=== PATIENT | female | born 1990 | race Caucasian/White ===

== ENCOUNTER 2019-05-27 08:53 | Inpatient (IN) | payer OTHER ==
[2019-05-27] MEDS ORDERED: Lactated Ringers 1000 ML Bag* 1,000 ML IV ONE (09:07)
[2019-05-27] MEDS ORDERED: Buffered Lidocaine 1% SYRIN* 1 ML/SYRINGE INTRADERM ONE (09:07)
[2019-05-27] MEDS ORDERED: Dinoprostone* 10 MG VAG.SUPP VAGINAL ONE (09:07)
[2019-05-27 10:00] LABS: Urine Appearance Cloudy; Urine Bilirubin Negative (Negative); Urine Blood 1+ (Negative); Urine Color Yellow; Urine Glucose Negative (Negative); Urine Ketones Negative (Negative); Urine Nitrite Negative (Negative); Urine Protein Negative (Negative); Urine Specific Gravity 1.004 (1.010-1.030); Urine Urobilinogen Negative (Negative)
[2019-05-27 10:05] LABS: Urine Bacteria 1+ (Absent); Urine Red Blood Cell 2+(6-10/hpf) (Absent); Urine Squamous Epithelial Cell Present (Absent); Urine White Blood Cell 1+(6-10/hpf) (Absent)
[2019-05-27 10:12] LABS: Urine Benzodiazepine Screen None Detected (None Detect); Urine Opiates Screen None Detected (None Detect)
--- NOTE | 2019-05-27 10:17 | HP ---
General Information - Reason for Visit Pt with dx proteinuria without hypertension. Recommendation for IOL at 39 weeks. Here for cervical ripening today. - General Information Maternal Age: 29 Grav: 1 Para: 0 SAB: 0 IEA: 0 Estimated Due Date: 06/03/19 Determined By: Early Ultrasound Gestational Age in Weeks/Days: 39 0/7 Maternal Blood Type and Rh: A Positive - Results this Serology/RPR Result: Non-Reactive Rubella Result: Immune HBsAg Result: Negative HIV Result: Negative GBS Culture Result: Negative Past Medical History Delivery History: See Records - Primigravida Pertinent Past Medical History: See Records - hypothyroidism, depression/ anxiety Pertinent Past Surgical History: See Records - tonsillectomy and adenoidectomy Pertinent Family History: See Records - HTN, DM - Antepartal Records Antepartal Records: Reviewed, Complicated by: - hypothyroidism, anxiety/ depression Review of Systems Constitutional: Comfortable CV Complaint: No Respiratory: Shortness of Breath: No Gastrointestinal: No Nausea/Vomiting, Normal Bowel Movement Genitourinary: No Dysuria, No Bleeding, No Leaking Fluid Musculoskeletal: No Complaint, No Epigastric Pain Neurological: No Headache Movement: Normal Exam Allergies/Adverse Reactions: Allergies No Known Allergies Allergy (Verified 11/17/14 20:17) T-97.4, P-66, R-22, BP- 121/67, O2-99% Lab Values - Entire Visit: Laboratory Tests 05/27/19 09:37 Urine Color Yellow Urine Appearance Cloudy Urine pH 7.0 Ur Specific Ailey 1.004 L Urine Protein Negative Urine Ketones Negative Urine Blood 1+ A Urine Nitrate Negative Urine Bilirubin Negative Urine Urobilinogen Negative Ur Leukocyte Esterase 3+ A Urine WBC (Auto) 1+(6-10/hpf) A Urine RBC (Auto) 2+(6-10/hpf) A Ur Squamous Epith Cells Present A Urine Bacteria 1+ A Urine Glucose Negative - Measurements Height: 5 ft 8 in Weight: 96.162 kg Weight in lbs: [id number] Body Mass Index (BMI): 32.2 Pre- Weight: 83.915 kg Weight Gained This : 27 lbs and 0 ozs - Exam Breast: Breast Exam Deferred CVA: No CVA Tenderness Extremities: Edema - trace pedal Heart: Normal Rhythm/Heart Sounds HEENT: No Significant Findings Lungs: Clear Bilaterally Rectal: Rectal Exam Deferred Thyroid: No Thyromegaly - Abdominal Exam Abdomen Exam: Non-Tender, Fundal Height Consistent with Dates - Ultrasound/Biophysical Profile Ultrasound Status: Not Done Targeted Exam Findings See L&D Outpatient Visit Provider Note for Findings: N/A Estimated Weight: 7.5# Cervical Exam: Closed Effacement: Thick Station: High Presenting Part: Vertex Membrane Status: Intact Bleeding/Discharge: None EFM Findings - External Monitor Findings Baseline Heart Rate: 135 External Monitor Findings: Accelerations Present, No Pattern of Variable or Late Decelerations, Variability Moderate, Baseline Stable Contractions: Irregular, Mild Assessment/Plan - Assessment 29 year old at 39 0/7 weeks gestation with proteinuria, here for cervical ripening and induction of labor. No evidence of acidemia. - Obstetrical Risk Factors Obstetrical Risk Factors: Proteinuria - Plan Plan: Cervical Ripening, Admit - Anticipate Vaginal Delivery - Date/Time of Admission Date of Admission: 05/27/19 Time of Admission: 09:40
--- NOTE | 2019-05-27 15:53 | PN ---
Progress Note - Progress Note Date of Service: 05/27/19 SOAP: Subjective: Pt aware of ctx, but reports they are tolerable. and sister at bedside. Objective: FHR: Baseline 140/ moderate variability/ + accels/ no decels UCs:3 minutes BP: 112/60 Assessment: Pt here for cervical ripening/ IOL for proteinuria, tee frequently with cervidil. No evidence of acidemia. Plan: Will continue continuous EFM due to frequency of ctx. If no hyperstim and if pt continues to tolerate well, and if FHR continues to be Category I, will keep Cervidil in place.
--- NOTE | 2019-05-27 16:57 | PN ---
Progress Note - Progress Note Date of Service: 05/27/19 SOAP: Subjective: Pt reports ctx becoming more uncomfortable. Objective: UCs: Pt was experiencing tachysystole (6+ ctx in 10 minutes x 30 minutes); now that Cervidil removed they are 2-4 minutes FHR:Baseline 135/ moderate variability/ + accels/ no decels Temp: 99.1 Cervix: 1cm/ 50%/ -3/ posterior Assessment: Pt experiencing uterine tachysystole in response to Cervidil. FHR did not exhibit any indication of acidemia. Plan: Cervidil pulled. Will continue to monitor UCs/ FHR. Hopefully pt will continue to contract regularly. If not will recheck cervix and consider another dose of Cervidil vs Pitocin.
--- NOTE | 2019-05-27 19:50 | PN ---
Progress Note - Progress Note Date of Service: 05/27/19 SOAP: Subjective: Pt continues to feel ctx, breathing through some, able to talk through others. Objective: Cervical exam deferred FHR: Baseline 125/ moderate variability/ + accels/ no decels UCs: 2-3 minutes Membranes intact Assessment: Pt continuing to contract regularly, although mild. No evidence of acidemia. Plan: Recheck cervix if ctx space out, pt desires pain medication, or in a few hours. Consider Pitocin augmentation if needed.
--- NOTE | 2019-05-27 21:24 | PN ---
Progress Note - Progress Note Date of Service: 05/27/19 Note: Pt continuing to contract regularly, feels they are less frequent but stronger. Still appears fairly comfortable. UCs every 3-5 minutes. FHR Category I. Cervical exam deferred. Offered sleeping pill or IV or IM therapeutic rest if desired. Pt will consider.
--- NOTE | 2019-05-27 23:26 | PN ---
Progress Note - Progress Note Date of Service: 05/27/19 SOAP: Subjective: Pt reports ctx have spaced out. Comfortable. Objective: T-98.6, BP: 124/69 FHR: 130 per intermittent auscultation UCs: mild irregular Assessment: No evidence of acidemia. Pt not in active labor. Plan: Discussed options with pt including sleeping tonight vs checking cervix and considering Pitocin. Pt prefers to sleep tonight and resume induction in the morning.
[2019-05-28] MEDS ORDERED: Levothyroxine TAB* 88 MCG TAB PO SCH (06:00)
[2019-05-28] MEDS ORDERED: Oxytocin in LR* 20 UNITS/1,000 ML BAG IVPB SCH ×2 (08:30→23:00)
--- NOTE | 2019-05-28 08:38 | PN ---
Progress Note - Progress Note Date of Service: 05/28/19 Note: S: Assuming care of Lise gamez 29 year-old G1 at 39-7 here for induction of labor for proteinuria. Denies headache. No visual changes. No RUQ pain. Denies decreased urine output. Was able to sleep overnight. Reports only mild, irregular UCs at this time. Not bothersome. O: BP 131/76 HR 66 RR 18 T 98.5 FHT 135bpm. Moderate variability. +Accels. No decels. UCs mild, irregular VE deferred A: IUP at 39-05/15 with proteinuria Not in labor No evidence of metabolic acidemia P: Given response to Cervidil yesterday resulting in tachysystole and need to remove medication early PARQ trial of low dose IV pitocin. Pt agrees. Will defer VE until regular UC pattern. Pt agrees and happy with plan due to discomfort with exams. Will repeat labs: CBC, T&S, CMP, Uric acid, DIC screen with IV start. Close monitoring of maternal/ status.
[2019-05-28] MEDS: Lactated Ringers 1000 ML Bag* 1,000 ML IV SCH ×2 (08:48→18:46)
[2019-05-28] MEDS ORDERED: LEVOTHYROXINE 88 MCG PO SCH (09:00)
[2019-05-28] MEDS ORDERED: Lactated Ringers 1000 ML Bag* 1,000 ML IV SCH ×3 (09:00→23:00)
[2019-05-28 09:18] LABS: ABS Eosinophils 0.4 10^3/ul (0-0.6); ABS Monocytes 0.6 10^3/ul (0-0.8); ABS Neutrophils 6.7 10^3/ul (1.5-7.7); Eosinophil % 3.8 %; Hematocrit 32 % (35-47); Hemoglobin 11.2 g/dL (12.0-16.0); Lymphocyte % 20.3 %; Mean Corpuscular HGB Conc 35 g/dL (31-36); Mean Corpuscular Hemoglobin 30 pg (27-31); Mean Corpuscular Volume 84 fL (80-97); Mean Platelet Volume 7.2 fL (7.4-10.4); Nucleated Red Blood Cells % 0.2; Platelet Count 226 10^3/uL (150-450); Red Cell Distribution Width 16 % (10-15); White Blood Count 9.6 10^3/uL (3.5-10.8)
[2019-05-28 09:36] LABS: Albumin 3.4 g/dL (3.2-5.2); Albumin/Globulin Ratio 1.2 (1-3); BUN/Creatinine Ratio 6.9 (8-20); Calcium 8.8 mg/dL (8.6-10.3); EGFR African American 149.8 (>60); EGFR Non-African American 123.8 (>60); Globulin 2.9 g/dL (2-4); Potassium 3.8 mmol/L (3.5-5.0); Total Bilirubin 0.4 mg/dL (0.2-1.0); Total Protein 6.3 g/dL (6.4-8.9); Uric Acid 3.2 mg/dL (2.3-6.6)
[2019-05-28 10:16] LABS: Activated Partial Thrombo Time 26.5 seconds (26.0-38.0); Fibrinogen 434.4 mg/dL (110.8-404.3); INR 0.87 (0.82-1.09)
[2019-05-28 10:17] LABS: Schistocytes ABSENT
[2019-05-28 10:18] LABS: Platelet Count 226 10^3/ul (150-450)
--- NOTE | 2019-05-28 13:46 | PN ---
Progress Note - Progress Note Date of Service: 05/28/19 Note: S: Pt tried tub and continues to report discomfort. Would like VE and to discuss pain relief options. O: BP 133/71 HR 75 RR 20 T 98.4 FHT 135bpm. Moderate variability. +Accels. No decels UCs q 2-4 IV pit at 16mu/min VE 1-2/80%/vtx -1 A: IUP at 39-1/7 in latent labor No evidence of metabolic acidemia Proteinuria without pre-eclampsia P: Discussed pain relief options at this stage of labor including IV pain relief with Fentanyl vs. Morphine, pros/cons, risks/benefits of each vs. Nitrous Oxide including pros/cons, risks/benefits. Do not recommend epidural at this early stage. All questions answered. Pt requests trial of nitrous oxide. Continue IV pitocin. Close monitoring of maternal/ status
[2019-05-28] MEDS ORDERED: OBEPIDURAL* 250 ML EPIDURAL ONE (18:16)
--- NOTE | 2019-05-28 18:22 | PN ---
Progress Note - Progress Note Date of Service: 05/28/19 Note: S: Pt requesting VE because UCs feeling stronger. Good relief with nitrous but interested in seeing progress because will want an epidural if it's time. O: BP 132/82 HR 68 FHT 135bpm. Moderate variability. +Accels. No decels UCs q 2-4 mild to moderate. IV pitocin at 16mu/min VE 3-4/100%/vtx -1, Counseled for AROM. Pt and FOB agreed. Amniotomy to clear fluid A: IUP at 39-1/7 in early active labor No evidence of metabolic acidemia Proteinuria without pre-eclampsia P: Nitrous off. Anesthesia paged for consult. Continue IV pitocin. Close monitoring of maternal/ status. Anticipate progression into active labor.
[2019-05-28] MEDS ORDERED: Lactated Ringers 1000 ML Bag* 1,000 ML IV ONE (18:50)
[2019-05-28] MEDS ORDERED: Famotidine TAB* 20 MG PO PRN (18:50)
[2019-05-28] MEDS ORDERED: Phenylephrine 40 MCG/ML SYRINGE IV PUSH PRN ×2 (18:50)
[2019-05-28] MEDS ORDERED: Sodium Citrate/Citric Acid* 15 ML UDC PO PRN (18:50)
[2019-05-28] MEDS ORDERED: OBEPIDURAL* 250 ML EPIDURAL SCH (19:00)
--- NOTE | 2019-05-28 21:09 | PN ---
Progress Note - Progress Note Date of Service: 05/28/19 Note: S: Pt comfortable s/p epidural placement but in the last 15 minutes reports intense rectal pressure with UCs. Breathing through UCs and using bolus button as instructed by anesthesia. Requesting VE O: BP 139/80 HR 79 RR 16 T 99.5 FHT 140bpm. Moderate variability. +Accels. No decels. UCs q 2-3, IV pitocin at 18mu/min VE 9cm/100%/vtx 0 A: IUP at 39-1/7 in labor No evidence of metabolic acidemia Proteinuria without pre-eclampsia P: Coached pt through breathing and provided bedside support. Anticipate trial of pushing soon.
[2019-05-28] MEDS ORDERED: Dibucaine 1% 28.35 GM TUBE PR PRN (22:45)
[2019-05-28] MEDS ORDERED: Witch Hazel PAD* JAR TOPICAL PRN (22:45)
--- NOTE | 2019-05-28 22:56 | PROCNOTE ---
[facility] OB: Delivery Note - Delivery A Date of : 05/28/19 Time of : 22:18 [place] Sex: Female - Nancy "Franca" Marizol Score 1 Minute: 7 Score 5 Minutes: 8 Gestational Age in Weeks and Days at Delivery: 39 Weeks and 1 Days Delivery Method: Spontaneous Vaginal Labor: Induced - with Cervidil x 1, IV pitocin and amniotomy Did Patient attempt ?: N/A, No Previous Amniotic Fluid: Clear - initially. Meconium stained with delivery of head Estimated Blood Loss: 400 Anesthesia/Analgesia: CEI for Labor - active labor. Placed by Dr. Flores, Nitrous-Labor - early labor Delivered By: Ariel Alvarez - Nursery Level of Nursery: Regular/Bedside - Perineum Perineal Injury: 2nd Degree - repaired in the usual fashion with 3-0 Vicryl under local infiltration 1% lidocaine and epidural analgesia. Anatomy restored and good hemostasis achieved. Pt tolerated well Perineal Repair: By Delivering Practioner - Events Delivery Events of Note: Pitocin During Labor - Additional Delivery Notes Additional Delivery Notes: Pt admitted for term induction at 39 weeks for proteinuria without pre- eclampsia. Received Cervidil x 1 followed by IV pitocin and amniotomy which led to onset active labor with expected progression to complete. Length of active phase 8 hours, 53 min. Pushed x 44 min. liveborn female. Slow, controlled delivery of head. OA to DAVID. With delivery of head meconium stained fluid noted. Nuchal cord x 1 noted. somersaulted through. Terminal meconium noted. Infant initially stunned. Responded well to tactile stimulation and bulb suction as well as delayed cord clamping. After cord clamped x 2 and cut by FOB Special Care RN moved infant to warmer for closer evaluation. Apgars 7/8. returned to maternal abdomen for transition. Spontaneous delivery intact placenta. Membranes complete. Fundus firm to massage with IV pitocin infusing. Repair as above. EBL 400mL. At time of note mother and in stable condition. Planning to breast feed.
[2019-05-28] MEDS: Ibuprofen TAB* 600 MG PO SCH (23:18)
[2019-05-29] MEDS ORDERED: Lidocaine 1% INJ* 10 MG/ML 30 ML SDV ONE (02:11)
[2019-05-29] MEDS: Ibuprofen TAB* 600 MG PO SCH ×3 (06:27→17:06)
[2019-05-29] MEDS: Levothyroxine TAB* 25 MCG TAB PO SCH (06:28)
[2019-05-29 06:39] LABS: ABS Basophils 0.1 10^3/ul (0-0.2); ABS Lymphocytes 1.7 10^3/ul (1.0-4.8); ABS Monocytes 1.3 10^3/ul (0-0.8); ABS Neutrophils 11.7 10^3/ul (1.5-7.7); Eosinophil % 0.3 %; Hematocrit 28 % (35-47); Hemoglobin 9.5 g/dL (12.0-16.0); Lymphocyte % 11.7 %; Mean Corpuscular HGB Conc 34 g/dL (31-36); Mean Corpuscular Hemoglobin 29 pg (27-31); Mean Corpuscular Volume 84 fL (80-97); Platelet Count 209 10^3/uL (150-450); Red Blood Count 3.33 10^6 /uL (3.70-4.87); Red Cell Distribution Width 15 % (10-15); White Blood Count 14.8 10^3/uL (3.5-10.8)
[2019-05-29] MEDS: Ferrous Gluconate TAB* 324 MG TAB PO SCH ×2 (10:26→20:41)
[2019-05-29] MEDS: Docusate CAP* 100 MG PO SCH ×3 (10:26→20:40)
[2019-05-29] MEDS: Acetaminophen TAB* 325 MG PO PRN ×2 (15:01→20:41)
[2019-05-30] MEDS: Ibuprofen TAB* 600 MG PO SCH ×2 (00:36→06:34)
[2019-05-30] MEDS: Acetaminophen TAB* 325 MG PO PRN ×2 (04:08→08:19)
[2019-05-30] MEDS: Levothyroxine TAB* 25 MCG TAB PO SCH (06:34)
[2019-05-30 08:07] VITALS: BP 133/81
[2019-05-30] MEDS: Docusate CAP* 100 MG PO SCH (08:19)
[2019-05-30] MEDS: Ferrous Gluconate TAB* 324 MG TAB PO SCH (08:19)
== END 2019-05-30 13:30 | disposition home or self-care (01) | DRG 807 ==
LOC: MCHOBOUT 08:53 → MCHOB 09:40
PROVIDERS: ADMIT Midwife; ATTEND Midwife
PROC: 10E0XZZ Delivery of Products of Conception, External Approach (ICD-10-PCS; principal; 2019-05-28)
PROC: 0KQM0ZZ Repair Perineum Muscle, Open Approach (ICD-10-PCS; 2019-05-28)
PROC: 10907ZC Drainage of Amniotic Fluid, Therapeutic from Products of Conception, Via Natural or Artificial Opening (ICD-10-PCS; 2019-05-28)
PROC: 3E033VJ Introduction of Other Hormone into Peripheral Vein, Percutaneous Approach (ICD-10-PCS; 2019-05-28)
PROC: 3E0P7VZ Introduction of Hormone into Female Reproductive, Via Natural or Artificial Opening (ICD-10-PCS; 2019-05-28)
PROC: 4A1HXCZ Monitoring of Products of Conception, Cardiac Rate, External Approach (ICD-10-PCS; 2019-05-28)
DX: O99.284 Endocrine, nutritional and metabolic diseases complicating childbirth (principal); Z37.0 Single live birth; E03.9 Hypothyroidism, unspecified; O70.1 Second degree perineal laceration during delivery; O77.0 Labor and delivery complicated by meconium in amniotic fluid; O90.81 Anemia of the puerperium; O12.14 Gestational proteinuria, complicating childbirth; O69.81X0 Labor and delivery complicated by cord around neck, without compression, not applicable or unspecified; Z3A.39 39 weeks gestation of pregnancy; Z28.21 Immunization not carried out because of patient refusal
CPT/HCPCS: 36415; 80053; 80307; 81003; 81015; 84550; 85025; 85049; 85362; 85384; 85610; 85730; 87077; 87086; A9270-GY